=== PATIENT | female | born 1955 | race Caucasian/White ===

== ENCOUNTER 2023-05-14 14:24 | Inpatient (IN) | payer MEDICARE, SELFPAY ==
[2023-05-14] VITALS (8 sets, daily range): BP systolic 109–153; BP diastolic 66–86; BMI 36.6
--- NOTE | 2023-05-14 11:32 | ED.GENMED ---
History of Present Illness
<Carmen Lobo PA-C - Last Filed: 05/14/23 19:11>
General
Chief Complaint: Abdominal Pain
Source: patient
Exam Limitations: none
Time Seen by Provider: 05/14/23 11:03
Nursing documentation reviewed up to this point in time: agreed with
Travel History
Have you had any contact with someone who has COVID-19?: No
Do you have any symptoms of coronavirus? Fever > 100 degrees, chills, cough, shortness of breath, sore throat, loss of taste or smell, muscle aches, or headache?: No
History of Present Illness
History of Present Illness:
The patient is a 68 year old female with no significant past medical history presenting for evaluation of lower abdominal pain. Symptoms started yesterday morning with a constant dull ache across her lower abdomen. Pain persisted throughout the day
and seemed to acutely worsen last night with an intermittent severe pain across her lower abdomen with associated lower back pain. She endorses regular bowel movements that were slightly softer in consistency last night. No exacerbating or
alleviating factors to abdominal pain. No changes in appetite. She denies any associated nausea, vomiting, constipation, or urinary symptoms. No fever, chills, chest pain, or shortness of breath.
Patient denies any history of abdominal surgeries. No history of kidney stones
Patient has had multiple colonoscopies in the past due to family history colon CA with the most recent a few months ago. A few polyps were removed but otherwise unremarkable.
Past History
<Carmen Lobo PA-C - Last Filed: 05/14/23 19:11>
Past History
ED Past Medical History: None and Other (Basal Cell CA)
ED Past Surgical History: Orthopedic
Social History
Tobacco: Non-smoker
Personal:
Living: with family
Employment: Not employed
Phy Exam
<Carmen Lobo PA-C - Last Filed: 05/14/23 19:11>
Physical Exam
Physical Exam:
General: Pleasant appearing, in no apparent distress, non-toxic
Vitals: Vital signs stable, afebrile
HEENT: Atraumatic, normocephalic; pupils equal round and reactive to light bilaterally, protecting airway
Neck: appears supple, no JVD
CV: RRR, heart sounds normal, no evidence of cyanosis
Resp: No evidence of respiratory distress, lungs clear bilaterally,
Abd: Moderate tenderness in lower abdomen somewhat worse in LLQ without rebound or guarding, non-distended; no CVA tenderness
Extremities: No deformities, no evidence of cyanosis or edema
Neuro: alert and oriented x 3
Psych: Normal affect
Skin: Intact, no rashes
Course
<Carmen Lobo PA-C - Last Filed: 05/14/23 19:11>
Orders/Labs/Results
Orders:
Orders
05/14/23 11:43
CT Abd/pelvis W Iv Cont Urgent
Comment:
Reason For Exam: lower abdominal pain
Complete Blood Count/With Diff Urgent
Comprehensive Metabolic Panel Urgent
Lipase Urgent
Urinalysis Reflex To Culture Urgent
Date Specimen was Collected: 05/14/23
Time Specimen was Collected: 11:42
0.9% Sodium Chloride 1000 ml [Nss] 1,000 ml IV BOLUS
Ketorolac [Toradol] 15 mg IV NOW STA
05/14/23 13:29
HYDROmorphone [Dilaudid] 0.5 mg IV NOW STA
Ondansetron Injectable [Zofran] 4 mg IV NOW STA
Piperacillin/Tazo 3.375 Gram [Zosyn] 3.375 gram in 50 ml IV NOW
05/14/23 14:08
Blood Culture Q30M
ISHA Source: Blood/Venous
Specimen Description:
05/14/23 14:15
Admit/Transfer Patient As Directed
Co-Sign Provider:
Level of Care: Inpatient admission
Assign to:: Medical/Surgical
Physician / Group: Robbie/hospitalist
Diagnosis: sigmoid diverticulitis
Reason for Hospitalization: sigmoid diverticulitis
Expected length of stay greater than two midnights?: Yes
ELOS- Estimated Length of Stay in days: 3
I certify the patient meets the requirements for IP care: Yes
05/14/23 14:16
Code Status As Directed
Resuscitation Status: Full Code
05/14/23 14:33
Blood Culture Q30M
ISHA Source: Blood/Venous
Specimen Description:
05/14/23 Dinner
Clear Liquid
At Your Request: Full Participation
05/14/23 15:27
0.9% Sodium Chloride 1000 ml [Nss] 1,000 ml IV 60 mls/hr
Morphine Sulfate 1 mg IV Q4HPRN PRN
Ondansetron Injectable [Zofran] 4 mg IV Q6HPRN PRN
05/14/23 15:27
Activity As Directed
Activity Level: As Tolerated
Vital Signs As Directed
Frequency: Per unit guidelines
DX Deep Vein Thrombosis Video Routine
05/14/23 18:00
Enoxaparin Sodium [Lovenox] 40 mg SC QPM
05/14/23 20:00
Piperacillin/Tazo 3.375 Gram [Zosyn] 3.375 gram in 50 ml IV Q6H
05/15/23 06:00
Basic Metabolic Panel IN AM
Complete Blood Count/With Diff IN AM
Magnesium IN AM
Abnormal Lab Results
05/14/23
11:43
WBC 14.3 H 10^3/uL
(4.8-10.8)
MPV 11.4 H fL
(7.4-10.4)
Absolute Neuts (auto) 11.7 H 10^3/uL
(1.4-6.5)
Absolute Monos (auto) 0.9 H 10^3/uL
(0.1-0.6)
Neutrophils % 81.6 H %
(42.2-75.2)
Lymphocytes % 11.3 L %
(20.5-51.1)
Creatinine 0.5 L mg/dL
(0.6-1.0)
Glucose 122 H mg/dl
(70-99)
05/14/23 11:43
05/14/23 11:43
Vital Signs
Initial and Last Documented VS:
Initial Vital Signs
Temp Pulse Resp BP Pulse Ox
98.7 F 102 17 153/86 99
05/14/23 10:55 05/14/23 10:55 05/14/23 10:55 05/14/23 10:55 05/14/23 10:55
Last Documented Vital Signs
Temp Pulse Resp BP Pulse Ox
98.6 F 95 14 118/70 97
05/14/23 15:30 05/14/23 15:30 05/14/23 15:30 05/14/23 15:30 05/14/23 15:30
<Neris Dunlap MD - Last Filed: 05/14/23 12:20>
Orders/Labs/Results
Orders:
Orders
05/14/23 11:43
CT Abd/pelvis W Iv Cont Urgent
Comment:
Reason For Exam: lower abdominal pain
Complete Blood Count/With Diff Urgent
Comprehensive Metabolic Panel Urgent
Lipase Urgent
Urinalysis Reflex To Culture Urgent
Date Specimen was Collected: 05/14/23
Time Specimen was Collected: 11:42
0.9% Sodium Chloride 1000 ml [Nss] 1,000 ml IV BOLUS
Ketorolac [Toradol] 15 mg IV NOW STA
05/14/23 13:29
HYDROmorphone [Dilaudid] 0.5 mg IV NOW STA
Ondansetron Injectable [Zofran] 4 mg IV NOW STA
Piperacillin/Tazo 3.375 Gram [Zosyn] 3.375 gram in 50 ml IV NOW
05/14/23 14:08
Blood Culture Q30M
ISHA Source: Blood/Venous
Specimen Description:
05/14/23 14:15
Admit/Transfer Patient As Directed
Co-Sign Provider:
Level of Care: Inpatient admission
Assign to:: Medical/Surgical
Physician / Group: Robbie/hospitalist
Diagnosis: sigmoid diverticulitis
Reason for Hospitalization: sigmoid diverticulitis
Expected length of stay greater than two midnights?: Yes
ELOS- Estimated Length of Stay in days: 3
I certify the patient meets the requirements for IP care: Yes
05/14/23 14:16
Code Status As Directed
Resuscitation Status: Full Code
05/14/23 14:33
Blood Culture Q30M
ISHA Source: Blood/Venous
Specimen Description:
05/14/23 Dinner
Clear Liquid
At Your Request: Full Participation
05/14/23 15:27
0.9% Sodium Chloride 1000 ml [Nss] 1,000 ml IV 60 mls/hr
Morphine Sulfate 1 mg IV Q4HPRN PRN
Ondansetron Injectable [Zofran] 4 mg IV Q6HPRN PRN
05/14/23 15:27
Activity As Directed
Activity Level: As Tolerated
Vital Signs As Directed
Frequency: Per unit guidelines
DX Deep Vein Thrombosis Video Routine
05/14/23 18:00
Enoxaparin Sodium [Lovenox] 40 mg SC QPM
05/14/23 20:00
Piperacillin/Tazo 3.375 Gram [Zosyn] 3.375 gram in 50 ml IV Q6H
05/15/23 06:00
Basic Metabolic Panel IN AM
Complete Blood Count/With Diff IN AM
Magnesium IN AM
Abnormal Lab Results
05/14/23
11:43
WBC 14.3 H 10^3/uL
(4.8-10.8)
MPV 11.4 H fL
(7.4-10.4)
Absolute Neuts (auto) 11.7 H 10^3/uL
(1.4-6.5)
Absolute Monos (auto) 0.9 H 10^3/uL
(0.1-0.6)
Neutrophils % 81.6 H %
(42.2-75.2)
Lymphocytes % 11.3 L %
(20.5-51.1)
Creatinine 0.5 L mg/dL
(0.6-1.0)
Glucose 122 H mg/dl
(70-99)
05/14/23 11:43
05/14/23 11:43
Vital Signs
Initial and Last Documented VS:
Initial Vital Signs
Temp Pulse Resp BP Pulse Ox
98.7 F 102 17 153/86 99
05/14/23 10:55 05/14/23 10:55 05/14/23 10:55 05/14/23 10:55 05/14/23 10:55
Last Documented Vital Signs
Temp Pulse Resp BP Pulse Ox
98.6 F 95 14 118/70 97
05/14/23 15:30 05/14/23 15:30 05/14/23 15:30 05/14/23 15:30 05/14/23 15:30
<Carmen Lobo PA-C - Last Filed: 05/14/23 19:11>
MDM/Problems Addressed
Differential Diagnosis Includes:
Diverticulitis, appendicitis, kidney stone, UTI, bowel obstruction, etc
MDM/Problems Addressed:
Patient is a 68-year-old female presenting for evaluation of worsening lower abdominal pain over the past 2 days with associated lower back pain. No fever, chills, vomiting or urinary symptoms. Patient with regular bowel movements, slightly softer
than usual. No history of abdominal surgeries. Patient is afebrile, very mildly tachycardic on arrival. She is generally well-appearing. Physical exam as document above. She does have moderate tenderness palpation in lower abdomen, slightly
worse on left side. Will check basic labs, lipase, urine. Will check CT abdomen. Toradol for pain. Starting IV fluids. Will reassess
Patient does report some improvement in pain following Toradol. Her CBC shows a leukocytosis of 14.3, otherwise no clinically significant abnormalities. CMP without any clinically significant abnormalities. Lipase normal. Urine shows no signs of
blood in urine or infection. CT pending
CT shows findings consistent with acute diverticulitis of the sigmoid colon with severe inflammatory changes. There is some extraluminal air present suggesting possible microperforation. Given concern for microperforation�will admit to hospitalist
for further management and observation. Starting IV Zosyn. Patient still with significant discomfort. Will give 0.5 of Dilaudid and 4 of Zofran. Discussed with hospitalist
Chronic conditions affecting care:
N/A
Acute Exacerbation and/or Progression of Chronic Illness:
Acute diverticulitis
<Carmen Lobo PA-C - Last Filed: 05/14/23 19:11>
*Radiology
Radiology exam reviewed: preliminary read by ED provider and radiology read reviewed
*Pulse Oximetry
Patient hypoxic: no
*Shuttler Interpretation
Rate: Shuttler- N/A
*Critical Care Note
Total Time (30-74mins, 75-104mins- exclusive of procedures): Not Applicable
<Carmen Lobo PA-C - Last Filed: 05/14/23 19:11>
Patient Management
Discussion with other providers: Hospitalist
Escalation/DeEscalation of care consider admission/obs:
Given findings of some extraluminal air�concern for microperforation. Will admit to hospitalist for further management
ED Attending Note
<Carmen Lobo PA-C - Last Filed: 05/14/23 19:11>
-
Portions of this chart may have been created with voice recognition software.� Occasional wrong word or��sound alike� substitutions may have occurred due to the inherent limitations of voice recognition software.
<Neris Dunlap MD - Last Filed: 05/14/23 12:20>
ED Attending Note
Patient seen and examined by attending physician: Yes
I performed the substantive portion of visit, reviewed & personally made and approve the management plan that is documented in note by myself or ERICA.: Yes
ED Attending Note:
68-year-old female with complaints of abdominal pain that began yesterday and getting gradually worse. She was unable to sleep last night due to the pain. She describes the pain is across her lower abdomen without associated nausea, vomiting,
fever, chills, chest pain, shortness of breath. She does have discomfort in her lower back as well. The pain seems to be worse when she sits down on the toilet. She does not have pain while actually having a bowel movement. On exam, patient
awake alert pleasant. Moderate tenderness to palpation noted across the entire lower abdomen and slightly more so at left lower quadrant, no rebound or guarding. Well-perfused. Differential includes diverticulitis, appendicitis, bowel
obstruction, kidney stone, etc. CT pending, labs pending, feels more comfortable status post pain medicine here, will reassess
Discharge Plan
Departure
Patient Disposition: Admit
Date of Disposition: 05/14/23
Time of Disposition: 13:27
Presentation/result/management discussed w/ accepting MD/DO: Hospitalist
Discharge Problem:
Acute diverticulitis
Interventions
Interventions:
*Risk Screen - Suicide Last Done: 05/14/23 15:29
*General Assessment Last Done: 05/14/23 10:55
*Neglect/Abuse Screening Last Done: 05/14/23 10:55
ED- Fall Risk Assessment Last Done: 05/14/23 11:24
*ED COVID-19 Vaccine History Last Done: 05/14/23 15:29
*Nursing Disposition Last Done: 05/14/23 15:18
QL-Dsjhjs-Dxwgqjzujc Assessment Last Done: 05/14/23 11:53
Discharge Date and Time
Discharge Date/Time: 05/14/23 15:18
[2023-05-14] MEDS: TORADOL 15 MG IV (11:50)
[2023-05-14] MEDS: NSS 1000 IV ×2 (11:50→16:05)
[2023-05-14 11:51] LABS: % Basophils 0.1 % (0-2); % Eosinophils 0.1 % (0-6); % Immature Granulocytes 0.3 % (0-0.5); % Lymphocytes 11.3 % (20.5-51.1); % Monocytes 6.6 % (1.7-9.3); % Neutrophils 81.6 % (42.2-75.2); Absolute Lymphocytes 1.6 10^3/uL (1.2-3.4); Absolute Monocytes 0.9 10^3/uL (0.1-0.6); Absolute Neutrophils 11.7 10^3/uL (1.4-6.5); Hematocrit 37.5 % (37.0-47.0); Hemoglobin 12.4 g/dL (12.0-16.0); Mean Corp Hgb Conc. 33.1 g/dL (33.0-37.0); Mean Corpuscular Hgb 29.5 pg (27.0-31.0); Mean Corpuscular Volume 89.3 fL (81.0-99.0); Mean Platelet Volume 11.4 fL (7.4-10.4); Nucleated Red Blood Cells % 0 %; Platelet Count 206 10^3/uL (130-400); Red Cell Dist. Width 12.7 % (11.5-14.5); Urine Albumin Negative (Neg - Trace); Urine Bilirubin Negative (Negative); Urine Character Clear (Clear); Urine Color Yellow; Urine Glucose Negative (Negative); Urine Ketone Negative (Negative); Urine Leukocyte Negative (Negative); Urine Nitrite Negative (Negative); Urine Occult Blood Negative (Negative); Urine Urobilinogen Negative (Neg - 1+); White Blood Cell Count 14.3 10^3/uL (4.8-10.8)
[2023-05-14 12:05] LABS: ALT (SGPT) 22 U/L (0-35); AST (SGOT) 23 U/L (14-36); Albumin 4.1 g/dl (3.5-5.0); Alkaline Phosphatase 83 U/L (38-126); Blood Urea Nitrogen 11 mg/dl (7-17); Calcium 9.3 mg/dl (8.4-10.2); Carbon Dioxide 26 mmol/L (22-30); Chloride 104 mmol/L (98-107); Glucose 122 mg/dl (70-99); Lipase 48 U/L (23-300); Potassium 3.7 mmol/L (3.5-5.1); Sodium 135 mmol/L (135-145); Total Bilirubin 1.3 mg/dl (0.2-1.3); Total Protein 7.3 g/dl (6.3-8.2); eGFR > 60.00
[2023-05-14] MEDS: DILAUDID 0.5 MG IV (13:49)
[2023-05-14] MEDS: ZOSYN 50 IV ×2 (13:50→20:42)
[2023-05-14] MEDS: ZOFRAN 4 MG IV (13:50)
--- NOTE | 2023-05-14 13:54 | HPS.HSE ---
Family Physician
-
Family Physician: Georgina Felton
Chief Complaint
-
nausea/ abd pain
History of Present Illness
HPI: 68 year old female with no significant past medical history except for diverticulosis; p/w BL lower abdominal pain that started the day prior. This was associated with nausea.
She denies to other symptoms. Her last coloscopy was 2 months; she was noted to have a sessile polyp in the ascending colon and a few diverticula in the sigmoid colon and descending colon.
Medical History
Past Medical History
Past Medical History: Reports Other
Additional Past Medical History:
diverticulosis
Past Surgical History: Reports Orthopedic
Additional Past Surgical History:
R knee replacement,
L ankle surgery
R big toe surgery
Social History
Tobacco: Non-smoker
Alcohol: Occasional
Personal:
Living: With Family
Family History
Family History: Not pertinent
Allergies / Home Medications
Allergies reflects when Allergies were last updated in [facility].
Home Medications with original date entered in [facility]
Allergy/Medication List:
Medications on admission are unable to be verified or confirmed at this time.
Review of Systems
-
Abdomen/GI: Reports See HPI, Abdominal Pain and Nausea
Physical Exam
Vital Signs
Vital Signs
Temp Pulse Resp BP Pulse Ox
37.1 C 102 38 135/70 96
05/14/23 10:55 05/14/23 12:15 05/14/23 11:37 05/14/23 13:00 05/14/23 12:15
Physical Exam
General: Well Developed, Well Nourished, No Apparent Distress, Comfortable and Conversant
HEENT: NormoCephalic, Moist mucous membranes and Atraumatic
Respiratory: Clear
Cardiac: S1/S2 and Regular Rhythm; No Murmur or Rub
GI: Soft, Non Distended and Tender (BL lower abd); No Organomegaly
Rectal: Deferred by Provider
Musculoskeletal: No Clubbing, No Cyanosis and No Edema
Skin: No Rash
Neuro: Awake, Alert and Nonfocal/grossly intact
Psych: Calm and Intact Judgment/Insight
Laboratory Results
-
05/14/23 11:43
05/14/23 11:43
Laboratory Results
Total Bilirubin 1.3 mg/dl (0.2-1.3) 05/14/23 11:43
AST 23 U/L (14-36) 05/14/23 11:43
ALT 22 U/L (0-35) 05/14/23 11:43
Alkaline Phosphatase 83 U/L (38-126) 05/14/23 11:43
Lipase 48 U/L (23-300) 05/14/23 11:43
Data Reviewed
-
CT Scan: Report Reviewed by me
Lab Data: Labs Reviewed by me
Impression/Plan
-
HPI: 68 year old female with no significant past medical history except for diverticulosis; p/w BL lower abdominal pain that started the day prior. This was associated with nausea.
She denies to other symptoms. Her last coloscopy was 2 months; she was noted to have a sessile polyp in the ascending colon and a few diverticula in the sigmoid colon and descending colon.
CT AP:
Diverticulitis involving the sigmoid colon in the central pelvis, with severe inflammatory changes. There is a small focus of contained extraluminal air anterior to the sigmoid colon. No evidence for drainable abscess collection. No evidence for
free intraperitoneal air.
A/P:
# Sigmoid diverticulitis
# h/o diverticula in sigmoid colon and descending colon.
CT AP report as above
Clears for now and ADAT
Continue Zosyn, follow blood culture
pain control with Morphine PRN
antiemetic with Zofran PRN
Recent C-scope in February 2023 was unremarkable except for 2 mm polyp in the ascending colon and few diverticula in the sigmoid colon and descending colon.
DVT ppx: Lovenox SQ
FC
[2023-05-14] MEDS: LOVENOX 40 MG SC (17:33)
[2023-05-14] MEDS: TYLENOL 650 MG PO (21:03)
[2023-05-15] MEDS: ZOSYN 50 IV ×4 (02:06→20:19)
[2023-05-15 06:25] LABS: % Basophils 0.2 % (0-2); % Eosinophils 0.5 % (0-6); % Immature Granulocytes 0.6 % (0-0.5); % Lymphocytes 16.4 % (20.5-51.1); % Monocytes 6.1 % (1.7-9.3); % Neutrophils 76.2 % (42.2-75.2); Absolute Eosinophils 0.1 10^3/uL (0-0.7); Absolute Immature Granulocytes 0.1 10^3/uL (0-0.05); Absolute Lymphocytes 1.7 10^3/uL (1.2-3.4); Absolute Monocytes 0.6 10^3/uL (0.1-0.6); Absolute Neutrophils 8.1 10^3/uL (1.4-6.5); Hematocrit 34.3 % (37.0-47.0); Hemoglobin 11.2 g/dL (12.0-16.0); Mean Corp Hgb Conc. 32.7 g/dL (33.0-37.0); Mean Corpuscular Hgb 29.7 pg (27.0-31.0); Mean Platelet Volume 11.7 fL (7.4-10.4); Nucleated Red Blood Cells % 0 %; Platelet Count 170 10^3/uL (130-400); Red Blood Cell Count 3.77 10^6/uL (4.20-5.40); Red Cell Dist. Width 12.8 % (11.5-14.5); White Blood Cell Count 10.6 10^3/uL (4.8-10.8)
[2023-05-15 06:48] LABS: Blood Urea Nitrogen 9 mg/dl (7-17); Calcium 8.4 mg/dl (8.4-10.2); Carbon Dioxide 26 mmol/L (22-30); Chloride 106 mmol/L (98-107); Estimated Creatinine Clearance 102 ml/min; Glucose 111 mg/dl (70-99); Magnesium 1.8 mg/dl (1.6-2.3); Potassium 3.5 mmol/L (3.5-5.1); Sodium 135 mmol/L (135-145); eGFR > 60.00
[2023-05-15 07:20] VITALS: BP 101/70
[2023-05-15] MEDS: NSS 1000 IV (08:48)
[2023-05-15] MEDS: TYLENOL 650 MG PO (08:53)
--- NOTE | 2023-05-15 11:50 | W.PN.HOSP.TC ---
Today's Communication/Plan
-
Monitor vital signs and see plan
Follow fever curve
NPO for now; IVF
Continue with antibiotics
Colorectal evaluation
Assessment / Plan
Assessment / Plan
General: Well Developed, Well Nourished, No Apparent Distress
HEENT: NormoCephalic, Moist mucous membranes and Atraumatic
Respiratory: Clear
Cardiac: S1/S2 and Regular Rhythm; No Murmur or Rub
GI: Soft, Non Distended and Tender (BL lower abd);
Musculoskeletal: No Clubbing, No Cyanosis and No Edema
Neuro: Awake, Alert and Nonfocal/grossly intact
Psych: Calm and Intact Judgment/Insight
Sepsis 2/2 (fever,leukocytosis) 2/2 Acute Sigmoid diverticulitis
# h/o diverticula in sigmoid colon and descending colon.
CT noted; small focus of contained extraluminal air anterior to the sigmoid colon. consult colorectal
NPO for now
Continue Zosyn, follow blood culture
pain control with Morphine PRN
antiemetic with Zofran PRN
Recent C-scope in February 2023 was unremarkable except for 2 mm polyp in the ascending colon and few diverticula in the sigmoid colon and descending colon.
DVT ppx: Lovenox SQ
Full code
Anticipated Discharge: 24 - 48 hours
Subjective/Interval History
-
Date of Service: May 15, 2023
Still has abdominal pain
Objective Data
-
Labs:
Laboratory Results
05/15/23
05:44
WBC 10.6
Hgb 11.2 L
Hct 34.3 L
Plt Count 170
Sodium 135
Potassium 3.5
Chloride 106
Carbon Dioxide 26
BUN 9
Creatinine 0.5 L
Glucose 111 H
Calcium 8.4
Vital Signs:
Vital Signs
Temp Pulse Resp BP Pulse Ox
98.9 F 92 17 101/70 99
05/15/23 07:20 05/15/23 07:20 05/15/23 07:20 05/15/23 07:20 05/15/23 07:20
I&O
05/14/23 05/15/23 05/16/23
06:59 06:59 06:59
Intake Total 2440 / 2440
Balance 2440 / 2440
--- NOTE | 2023-05-15 13:26 | CON.CRS ---
Consultation
-
Date/Time Consultation Requested: 05/15/2023, 11:50
Date/Time Consultation Performed: 05/15/2023, 14:00
Requesting Provider: Eugene Maher MD
Performing Provider: Tani Cervantes MD
Reason for Consultation: diverticulitis
Medical History
-
Chief Complaint: Abdominal pain
History of Present Illness:
He 68-year-old female presents to the ER yesterday complaining of 2 days worth of lower abdominal pain that extended to her back. This is her first attack of diverticulitis. Her last colonoscopy was 03/03/2023 which showed a normal portion of the
ileum, 1 questionable 2 mm polyp in the ascending colon and diverticulosis in the sigmoid colon and in the descending colon. This was performed by Dr. Peña at [facility].
CT of the abdomen and pelvis shows diverticulitis involving the sigmoid colon and the central pelvis, with severe inflammatory changes. There is a small focus of contained extraluminal air anterior to the sigmoid colon. No evidence for drainable
abscess collection. No free intraperitoneal air. WBC upon admission was 14.3. Today it is 10.6. She has been on IV Zosyn. She had a temperature overnight of 100.4 that has since resolved.
Currently the patient states her abdominal pain is a little better since admission. She has flatus, but no bowel movements yet. Her last BM was Monday night (2 days ago) and was loose. She denies blood in her stool. She denies fevers or chills.
She is not on any blood thinners. Her father had colon cancer at age 69.
Past Medical History
Past Medical History: Other (Diverticulosis)
Past Surgical History: Other (Right knee replacement, left ankle surgery, right big toe surgery)
Social History
Tobacco: Non-Smoker
Alcohol: Occasional
Personal:
Family History
Family History: Cancer (father colon cancer - age 69)
Allergies / Home Medications
Allergy/AdvReac Type Severity Reaction Status Date / Time
No Known Allergies Allergy Verified 05/14/23 10:54
Medication Instructions Recorded Confirmed Type
omega 1-uuf-fxz-fish oil 1,000 mg 1 cap PO DAILY Supplement 08/19/10 05/15/23 History
(120 mg-180 mg) capsule (Fish Oil)
fipwaqlmvgw-kobsvilqa-usd C-Mn 500 1 ea PO DAILY Supplement 12/05/11 05/15/23 History
mg-400 mg capsule
B6 1.7 mg-folic 400 mcg-B12 2.4 1 cap PO Daily Supplement 05/14/23 05/15/23 History
kab-wiykww-iosleqaejjuy oral
capsule (Neuriva Plus Brain
Performance)
calcium carbonate 500 mg PO BID Supplement 05/14/23 05/15/23 History
Review of Systems
-
History Source: Patient
Abdomen/GI: Abdominal Pain (Lower quadrants) and Nausea
A 10 point review of systems was completed, and was negative except as per HPI.
Physical Exam
Vital Signs
Temp 98.9 F 05/15/23 07:20
Pulse 92 05/15/23 07:20
Resp Rate 17 05/15/23 07:20
Blood pressure 101/70 05/15/23 07:20
SaO2 99 05/15/23 07:20
05/14/23 05/15/23 05/16/23
06:59 06:59 06:59
Actual Weight 94.982 kg
Body Mass Index (BMI) 36.6
Lab Results / Allergies
05/15/23 05:44
05/15/23 05:44
WBC 10.6 10^3/uL (4.8-10.8) 05/15/23 05:44
Hgb 11.2 g/dL (12.0-16.0) L 05/15/23 05:44
Hct 34.3 % (37.0-47.0) L 05/15/23 05:44
Plt Count 170 10^3/uL (130-400) 05/15/23 05:44
Abs Immat Gran (auto) 0.1 10^3/uL (0-0.05) H 05/15/23 05:44
Neutrophils % 76.2 % (42.2-75.2) H 05/15/23 05:44
Allergy/AdvReac Type Severity Reaction Status Date / Time
No Known Allergies Allergy Verified 05/14/23 10:54
Physical Exam
General: Well Developed, Well Nourished and No Apparent Distress
GI: Soft, Tender (LLQ - moderate, RLQ, mild) and Distended (slight)
Neuro: Awake and AO x 3
Psych: Calm
Data Reviewed
-
CT Scan: Image Personally Visualized and interpreted and Report Reviewed by me
Labs: Labs Reviewed by me and Discussed with Patient
Old Records: Reviewed
Assessment / Plan
-
Assessment: 68-year-old female with first attack of sigmoid colon diverticulitis
Plan:
1. There is no plans for urgent surgery at this time. If she worsens she will need a colectomy with colostomy creation.
2. Monitor labs/vitals. WBC has normalized today.
3. Continue IV antibiotics.
4. Continue n.p.o. today.
5. Discussed CT scan with patient and her at bedside.
--- NOTE | 2023-05-15 13:46 | CM ---
Initial assessment completed with patient who lives with her in a 2 story home plus basement, with B/B on 2nd and 1/2 bath on 1st, 4 steps to enter, [employer] was independent and drove, Has a SPC in home but does not use, no in-home services, no
psychiatric hospitalizations, is HC POA. Pharmacy is [facility] on [facility] in [place] and PCP is Dr. Georgina Felton. ANTICIPATE HOME WITH NO NEEDS.
[2023-05-15 15:15] VITALS: BP 101/68
[2023-05-15] MEDS: MORPHINE SULFATE 1 MG IV (15:30)
[2023-05-15] MEDS: LOVENOX 40 MG SC (19:40)
[2023-05-15] MEDS: COMPAZINE 10 MG IV (20:18)
[2023-05-15] MEDS: TORADOL 15 MG IV (20:18)
[2023-05-15 23:19] VITALS: BP 121/73
[2023-05-16] MEDS: NSS 1000 IV (02:42)
[2023-05-16] MEDS: ZOSYN 50 IV ×4 (02:42→20:00)
[2023-05-16 05:01] LABS: % Basophils 0.4 % (0-2); % Eosinophils 2.9 % (0-6); % Immature Granulocytes 0.3 % (0-0.5); % Lymphocytes 31.2 % (20.5-51.1); % Monocytes 7.4 % (1.7-9.3); % Neutrophils 57.8 % (42.2-75.2); Absolute Eosinophils 0.2 10^3/uL (0-0.7); Absolute Lymphocytes 2.2 10^3/uL (1.2-3.4); Absolute Monocytes 0.5 10^3/uL (0.1-0.6); Absolute Neutrophils 4.1 10^3/uL (1.4-6.5); Hematocrit 31.7 % (37.0-47.0); Hemoglobin 10.2 g/dL (12.0-16.0); Mean Corp Hgb Conc. 32.2 g/dL (33.0-37.0); Mean Corpuscular Hgb 29.9 pg (27.0-31.0); Mean Platelet Volume 11.9 fL (7.4-10.4); Nucleated Red Blood Cells % 0 %; Platelet Count 170 10^3/uL (130-400); Red Blood Cell Count 3.41 10^6/uL (4.20-5.40); Red Cell Dist. Width 12.7 % (11.5-14.5); White Blood Cell Count 7.2 10^3/uL (4.8-10.8)
[2023-05-16 05:56] LABS: Blood Urea Nitrogen 11 mg/dl (7-17); Calcium 8.4 mg/dl (8.4-10.2); Carbon Dioxide 28 mmol/L (22-30); Chloride 105 mmol/L (98-107); Estimated Creatinine Clearance 102 ml/min; Glucose 83 mg/dl (70-99); Potassium 3.5 mmol/L (3.5-5.1); Sodium 139 mmol/L (135-145); eGFR > 60.00
[2023-05-16 07:17] VITALS: BP 111/68
[2023-05-16] MEDS: FLUSH (NSS) 1 FLUSH IV (08:00)
--- NOTE | 2023-05-16 10:04 | W.PN.CRS1 ---
Addendum entered and electronically signed by Tani Cervantes MD 05/16/23 12:48:
I saw and examined the patient.
The PA's note was reviewed and I agree with the note.
Comment:
Seen in am with PA.
Less pain.
Vitals and labs ok.
Mild to moderate LLQ tenderness.
Diet advanced.
Antibiotics.
Original Note:
Today's Communication / Plan
-
Clear liquids, advance to full's
No surgery at this time
Assessment/Plan
-
Assessment: 68-year-old female with first attack of sigmoid colon diverticulitis
Plan:
1.� There is no plans for urgent surgery at this time.� If she worsens she will need a colectomy with colostomy creation.
2.� Monitor labs/vitals. WBC has normalized. Afebrile.
3.� Continue IV antibiotics.
4.� Start on clear liquids. If tolerates advance to fulls.
Subjective Data
Subjective Data
Date of Service: May 16, 2023
Patient states her pain is a lot better. She is less tender. She is hungry.
Objective Data
-
Vital Signs
Temp Pulse Resp BP Pulse Ox
97.6 F 80 16 111/68 96
05/16/23 07:17 05/16/23 07:17 05/16/23 07:17 05/16/23 07:17 05/16/23 07:17
Intake & Output
05/15/23 05/16/23 05/17/23
06:59 06:59 06:59
Intake Total 2440 / 2440 960 / 960
Balance 2440 / 2440 960 / 960
Intake:
Oral fluids 1440 / 1440 960 / 960
IV fluids (Total) 900 / 900
IV piggybacks 100 / 100
Other:
Number of approximated MODERATE 4 3
amounts of urine
Number of approximated LARGE 1
amounts of urine
How many times incontinent 3
MODERATE amount urine
Lab Results
05/16/23 04:17
05/16/23 04:17
Physical Exam
-
General: No Acute Distress and AOx3
Abdomen: Soft, Non Distended and Tender (Mild left lower quadrant)
Skin: Warm and Dry
--- NOTE | 2023-05-16 11:17 | W.PN.HOSP.TC ---
Today's Communication/Plan
-
Monitor vital signs and see plan
Continue with antibiotics
Start clears
Colorectal surgery following
Pain control
Assessment / Plan
Assessment / Plan
General: Well Developed, Well Nourished, No Apparent Distress
HEENT: NormoCephalic, Moist mucous membranes and Atraumatic
Respiratory: Clear
Cardiac: S1/S2 and Regular Rhythm; No Murmur or Rub
GI: Soft, Non Distended and Tender (BL lower abd);
Musculoskeletal: No Clubbing, No Cyanosis and No Edema
Neuro: Awake, Alert and Nonfocal/grossly intact
Psych: Calm and Intact Judgment/Insight
Sepsis 2/2 (fever,leukocytosis) 2/2 Acute Sigmoid diverticulitis
# h/o diverticula in sigmoid colon and descending colon.
CT noted; small focus of contained extraluminal air anterior to the sigmoid colon. colorectal following; cw conservative management
clears
Continue Zosyn, follow blood culture
pain control with Morphine PRN
antiemetic with Zofran PRN
Recent C-scope in February 2023 was unremarkable except for 2 mm polyp in the ascending colon and few diverticula in the sigmoid colon and descending colon.
DVT ppx: Lovenox SQ
Full code
Anticipated Discharge: Within 24 hours
Subjective/Interval History
-
Date of Service: May 16, 2023
denies nausea
Objective Data
-
Labs:
Laboratory Results
05/16/23
04:17
WBC 7.2
Hgb 10.2 L
Hct 31.7 L
Plt Count 170
Sodium 139
Potassium 3.5
Chloride 105
Carbon Dioxide 28
BUN 11
Creatinine 0.5 L
Glucose 83
Calcium 8.4
Vital Signs:
Vital Signs
Temp Pulse Resp BP Pulse Ox
97.6 F 80 16 111/68 98
05/16/23 07:17 05/16/23 07:17 05/16/23 07:17 05/16/23 07:17 05/16/23 08:00
I&O
05/15/23 05/16/23 05/17/23
06:59 06:59 06:59
Intake Total 2440 / 2440 960 / 960
Balance 2440 / 2440 960 / 960
--- NOTE | 2023-05-16 12:16 | CM ---
CM following for d/c planning
Clear diet today
Cont IV abx and pain management
CM will follow for d/c needs
Plan - anticipate home no needs
--- NOTE | 2023-05-16 13:30 | PTCARENOTE ---
Patient on clear liquid diet for lunch. tolerated well. Denies pain or discomfort. plan of care ongoing.
[2023-05-16] MEDS: NSS IV (14:44)
[2023-05-16 15:12] VITALS: BP 123/72
[2023-05-16] MEDS: LOVENOX 40 MG SC (17:25)
[2023-05-16 23:21] VITALS: BP 149/93
[2023-05-17] MEDS: ZOSYN 50 IV ×2 (02:21→08:51)
[2023-05-17 04:55] LABS: % Basophils 0.3 % (0-2); % Eosinophils 3.5 % (0-6); % Immature Granulocytes 0.2 % (0-0.5); % Lymphocytes 35.8 % (20.5-51.1); % Monocytes 8.2 % (1.7-9.3); Absolute Eosinophils 0.2 10^3/uL (0-0.7); Absolute Lymphocytes 2.1 10^3/uL (1.2-3.4); Absolute Monocytes 0.5 10^3/uL (0.1-0.6); Hematocrit 31.2 % (37.0-47.0); Hemoglobin 10.2 g/dL (12.0-16.0); Mean Corp Hgb Conc. 32.7 g/dL (33.0-37.0); Mean Corpuscular Hgb 29.7 pg (27.0-31.0); Mean Corpuscular Volume 90.7 fL (81.0-99.0); Mean Platelet Volume 11.7 fL (7.4-10.4); Nucleated Red Blood Cells % 0 %; Platelet Count 203 10^3/uL (130-400); Red Blood Cell Count 3.44 10^6/uL (4.20-5.40); Red Cell Dist. Width 12.6 % (11.5-14.5); White Blood Cell Count 5.7 10^3/uL (4.8-10.8)
[2023-05-17] MEDS: TYLENOL 650 MG PO (05:01)
[2023-05-17 05:37] LABS: Blood Urea Nitrogen 9 mg/dl (7-17); Calcium 8.7 mg/dl (8.4-10.2); Carbon Dioxide 27 mmol/L (22-30); Chloride 103 mmol/L (98-107); Estimated Creatinine Clearance 102 ml/min; Glucose 88 mg/dl (70-99); Potassium 3.5 mmol/L (3.5-5.1); Sodium 139 mmol/L (135-145); eGFR > 60.00
[2023-05-17 07:58] VITALS: BP 125/78
--- NOTE | 2023-05-17 08:46 | W.PN.CRS1 ---
Today's Communication / Plan
-
low residue
Assessment/Plan
-
Assessment: 68-year-old female with first attack of sigmoid colon diverticulitis
Plan:
1.� There is no plans for urgent surgery at this time.� If she worsens she will need a colectomy with colostomy creation.
2.� Monitor labs/vitals. WBC has normalized. Afebrile.
3.� Continue IV antibiotics.
4.� Advance to a low residue. If tolerates advance to fulls.
5. Will sign off. Follow up in the office with Dr. Huerta in a few weeks. Discussed with the patient.
Subjective Data
Subjective Data
Date of Service: May 17, 2023
Patient states she feels well. She states she had a 'bad sleep'. She is not that hungry. She is having bowel movements.
Objective Data
-
Vital Signs
Temp Pulse Resp BP Pulse Ox
98.6 F 75 14 125/78 98
05/17/23 07:58 05/17/23 07:58 05/17/23 07:58 05/17/23 07:58 05/17/23 07:58
Intake & Output
05/16/23 05/17/23 05/18/23
06:59 06:59 06:59
Intake Total 960 / 960 1420 / 1420
Balance 960 / 960 1420 / 1420
Intake:
Oral fluids 960 / 960 1320 / 1320
IV piggybacks 100 / 100
Other:
Number of approximated MODERATE 3 3
amounts of urine
How many times incontinent 3
MODERATE amount urine
Lab Results
05/17/23 04:15
05/17/23 04:15
Physical Exam
-
General: No Acute Distress and AOx3
Abdomen: Soft, Non Distended and Non Tender
Skin: Warm and Dry
--- NOTE | 2023-05-17 10:08 | PTCARENOTE ---
pt advanced to low residue diet per colorectal this AM. pt ate all of her breakfast and is tolerating as of now. pt educated to follow up if having any GI/abd discomfort. pt received IV abx through her L AC site this morning. pt states she did not
sleep well last night but states she is not the best sleeper at baseline.
--- NOTE | 2023-05-17 10:46 | W.PN.HOSP.TC ---
Addendum entered and electronically signed by Eugene Maher MD 05/17/23 11:22:
Time of discharge 36 minutes
Original Note:
Today's Communication/Plan
-
Monitor vital signs and see plan
If tolerates low residue diet then discharge
Colorectal surgery follow-up outpatient
Assessment / Plan
Assessment / Plan
General: Well Developed, Well Nourished, No Apparent Distress
HEENT: NormoCephalic, Moist mucous membranes and Atraumatic
Respiratory: Clear
Cardiac: S1/S2 and Regular Rhythm; No Murmur or Rub
GI: Soft, Non Distended and Tender (BL lower abd);
Musculoskeletal: No Clubbing, No Cyanosis and No Edema
Neuro: Awake, Alert and Nonfocal/grossly intact
Psych: Calm and Intact Judgment/Insight
Sepsis 2/2 (fever,leukocytosis) 2/2 Acute Sigmoid diverticulitis
# h/o diverticula in sigmoid colon and descending colon.
CT noted; small focus of contained extraluminal air anterior to the sigmoid colon. colorectal following; cw conservative management
Now started on lower rest, if tolerates then discharged home with colorectal surgery follow-up
Continue Zosyn, blood culture NGTD
pain control with Morphine PRN
antiemetic with Zofran PRN
Recent C-scope in February 2023 was unremarkable except for 2 mm polyp in the ascending colon and few diverticula in the sigmoid colon and descending colon.
DVT ppx: Lovenox SQ
Full code
Anticipated Discharge: Today
Subjective/Interval History
-
Date of Service: May 17, 2023
pain is better
Objective Data
-
Labs:
Laboratory Results
05/17/23
04:15
WBC 5.7
Hgb 10.2 L
Hct 31.2 L
Plt Count 203
Sodium 139
Potassium 3.5
Chloride 103
Carbon Dioxide 27
BUN 9
Creatinine 0.5 L
Glucose 88
Calcium 8.7
Vital Signs:
Vital Signs
Temp Pulse Resp BP Pulse Ox
98.6 F 75 14 125/78 98
05/17/23 07:58 05/17/23 07:58 05/17/23 07:58 05/17/23 07:58 05/17/23 10:09
I&O
05/16/23 05/17/23 05/18/23
06:59 06:59 06:59
Intake Total 960 / 960 1420 / 1420
Balance 960 / 960 1420 / 1420
--- NOTE | 2023-05-17 11:23 | W.DCSUMMARY ---
Discharge Summary
Discharge Data
Date of Admission: 05/14/23
Date of Discharge: 05/17/23
-
Pending Results: No
Hospital Course
68-year-old female with past medical history of diverticulosis came to the hospital with sepsis secondary to acute sigmoid diverticulitis. CT scan was consistent with small focus of contained extraluminal air anterior to the sigmoid colon.
Colorectal surgery was then consulted. Patient initially was managed with bowel rest, and fluids and pain control. Patient symptoms markedly improved after conservative management and was able to tolerate low residue diet prior to discharge.
Patient antibiotics was then changed to oral and she was then discharged home with instructions to follow-up with all her physicians outpatient.
Discharge Plan
-
Patient Disposition: Home (Routine Discharge)
Discharge Diagnosis/Procedures: Sepsis secondary to acute sigmoid diverticulitis
Diet: Low Residue
Activity: As tolerated
Driving Restrictions: As prior to admission
Bathing Restrictions: None
Instructions: Low Fiber Diet
Referrals:
Georgina Felton MD [Family Provider] - in less than 1 week
Anshul Huerta MD [Active] - in three to four weeks
Prescriptions:
New
acetaminophen 325 mg Tablet
650 mg PO Q4HPRN PRN (Reason: mild pain/ fever>100.5F) Qty: 0 0RF
ciprofloxacin HCl 500 mg tablet
500 mg PO BID Qty: 20 0RF
metronidazole 500 mg tablet
500 mg PO Q8H Qty: 30 0RF
Continued
omega 1-pje-hum-fish oil [Fish Oil] 1,000 mg (120 mg-180 mg) Capsule
1 cap PO DAILY
hjwrlsolajv-tcpaqcxdm-rss C-Mn 1 EACH capsule
1 ea PO DAILY
calcium carbonate 500 mg calcium (1,250 mg) Tablet
500 mg PO BID
Neuriva Plus Brain Performance 1.7 mg-400 mcg- 2.4 mcg Capsule
1 cap PO Daily
Discharge Orders:
Discharge Patient (As Directed); Ordered 05/17/23
Ordered By: Eugene Maher
Discharge Date and Time
Discharge Date/Time: 05/17/23 12:28
Print Language: LITHUANIAN
[2023-05-17 11:49] VITALS: BP 142/82
--- NOTE | 2023-05-17 11:52 | CM ---
Patient has been medically cleared for discharge to home with no additional skilled services. Patient has arranged for transport home.
== END 2023-05-17 12:28 | disposition home or self-care (01) | DRG 872 ==
LOC: 2 NORTH 14:24
PROVIDERS: ADMITTING PHYSICIAN Internal Medicine; ATTENDING PHYSICIAN Internal Medicine; CONSULT PHYSICIAN Surgery; EMERGENCY PHYSICIAN Emergency Medicine; FAMILY PHYSICIAN Family Medicine
DX: A41.9 Sepsis, unspecified organism (principal); K57.32 Diverticulitis of large intestine without perforation or abscess without bleeding; Z96.651 Presence of right artificial knee joint; Z86.010 Personal history of colon polyps; Z87.19 Personal history of other diseases of the digestive system; Z80.0 Family history of malignant neoplasm of digestive organs
CPT/HCPCS: 74177; 80048; 80053; 81003; 83690; 83735; 85025; 87040; 87070; 96361; 96365; 96375; 99285; Q9967

== ENCOUNTER → 2024-01-03 16:49 | Outpatient (REF) | payer MEDICARE, SELFPAY | LOC: WDC 16:49 | PROVIDERS: ATTENDING PHYSICIAN Family Medicine | DX: Z12.31 Encounter for screening mammogram for malignant neoplasm of breast (principal) | CPT/HCPCS: 77063; 77067 ==

== ENCOUNTER → 2024-01-25 14:59 | Outpatient (REF) | payer MEDICARE, SELFPAY | LOC: WDC 14:59 | PROVIDERS: ATTENDING PHYSICIAN Obstetrics & Gynecology; FAMILY PHYSICIAN Family Medicine | DX: N60.01 Solitary cyst of right breast (principal); R92.8 Other abnormal and inconclusive findings on diagnostic imaging of breast | CPT/HCPCS: 76642 ==